=== PATIENT | female | born 1950 | race Caucasian/White ===

== ENCOUNTER 2017-03-12 06:24 | Day surgery (SDC) | payer MEDICARE, OTHER ==
[~2017-03-12] VITALS: Ht 162.6 cm; Wt 95.3 kg
[2017-03-12] VITALS (8 sets, daily range): BP systolic 105–141; BP diastolic 65–92
[~2017-03-12 06:24] MED LIST: ASPIR 8181 MG ORAL; ATENOLOL50 MG ORAL; BENTYL10 MG ORAL; CREON DR 24,001 EACH PO; DEXILANT60 MG ORAL; GABAPENTIN300 MG ORAL; LOSARTAN POTASS25 MG ORAL; MECLIZINE HCL25 MG ORAL; VENLAFAXINE HCL25 MG ORAL; cefOXitin Sod 1 GM in D5W 55 ML IVPB ONE
[2017-03-12] MEDS ORDERED: cefOXitin Sod 1 GM in D5W 55 ML IVPB ONE (07:00)
[2017-03-12] MEDS ORDERED: cefOXitin 2gm Inj ONE (07:11)
[2017-03-12] MEDS ORDERED: NS Irrig 1000ml IRRIG ONE (07:45)
--- NOTE | 2017-03-12 07:52 | Pre-Procedure Note/Attestation ---
Pre-Procedure Note/Attestation Complete Prior to Procedure Planned Procedure: not applicable Procedure Narrative: D&C, Hysteroscopy, possible polypectomy Indications for Procedure Pre-Operative Diagnosis: Endometrial enlargement, possible endometrial polyp Attestation I attest that I discussed the nature of the procedure; its benefits; risks and complications; and alternatives (and the risks and benefits of such alternatives ), prior to the procedure, with the patient (or the patient's legal vaccine customer representative). I attest that, if there was a reasonable possibility of needing a blood transfusion, the patient (or the patient's legal vaccine customer representative) was given the [facility] standardized written summary, pursuant to the [place] Blood Safety Act ([place] Health and Safety Code # 1645, as amended). I attest that I re-evaluated the patient just prior to the surgery and that there has been no change in the patient's H&P, except as documented below:NONE QING BOSE Mar 12, 2017 07:52
[2017-03-12] MEDS ORDERED: LR 1000ml ONE (08:00)
[2017-03-12] MEDS ORDERED: Midazolam 2mg/2ml Inj ONE (08:00)
[2017-03-12] MEDS ORDERED: Lidocaine 1% MPF 10mg/ml 5ml ONE (08:00)
[2017-03-12] MEDS ORDERED: Ketorolac 30mg Inj ONE (08:00)
[2017-03-12] MEDS ORDERED: Propofol 200mg/20ml IV ONE (08:00)
[2017-03-12] MEDS ORDERED: fentaNYL 100 mcg/2 mL IV ONE (08:00)
[2017-03-12] MEDS ORDERED: LR 1000ml 1,000 ML IVLG SCH (08:15)
[2017-03-12] MEDS ORDERED: DiphenhydrAMINE 50mg/ml Inj IVP PRN (08:15)
[2017-03-12] MEDS ORDERED: Hydromorphone 0.5mg/0.5ml inj IVP PRN (08:15)
--- NOTE | 2017-03-12 08:35 | Brief Operative Note ---
Immediate Post Operative Note Operative Note Pre-op Diagnosis: Endometrial enlargement, possible endometrial polyp Procedure: D&C, Hysteroscopy Post-op Diagnosis: Endometrial Enlargement on U/S, Endometrial Atrophy Findings: consistent w/pre-op dx studies, other Surgeon: Qing Bose MD Compound Coating Machine Offbearer: NONE Anesthesiologist: Lito Chou MD Anesthesia: general Specimen: yes - ECC, EMC Complications: none Condition: stable Fluids: LR @100 cc / hr Estimated Blood Loss: minimal Drains: none Implant(s) used?: No QING BOSE Mar 12, 2017 08:35
--- NOTE | 2017-03-12 08:43 | Immediate Post-Op Evaluation ---
Immediate Post-Op Evalulation Immediate Post-Op Evalulation Procedure: D&C Hysteroscopy Date of Evaluation: Mar 12, 2017 Time of Evaluation: 08:42 IV Fluids: 800 Blood Products: none Estimated Blood Loss: min Urinary Output: 300 Blood Pressure Systolic: 110 Blood Pressure Diastolic: 58 Pulse Rate: 58 Respiratory Rate: 20 O2 Sat by Pulse Oximetry: 99 Temperature (Fahrenheit): 97.6 Pain Score (1-10): 2 Nausea: No Vomiting: No Complications none Patient Status: reacts, patent, none Hydration Status: adequate NIMCO REA M.D. Mar 12, 2017 08:43
[2017-03-12] MEDS ORDERED: D5 1/2NS 1,000 ML IV SCH (08:45)
[2017-03-12] MEDS ORDERED: HYDROmorphone 1mg/ml Carpuject SUBQ PRN (08:45)
[2017-03-12] MEDS ORDERED: Tylenol #3 tab (300mg/30mg) ORAL PRN (08:45)
[2017-03-12] MEDS ORDERED: Norco 5mg/325mg tab ORAL PRN (08:45)
--- NOTE | 2017-03-12 08:47 | Anethesia Preoperative Eval ---
Anesthesia Pre-op PMH/ROS General Date of Evaluation: Mar 12, 2017 Time of Evaluation: 07:11 Anesthesiologist: Effie ASA Score: ASA 3 Mallampati Score Class I : Soft palate, uvula, fauces, pillars visible Class II: Soft palate, uvula, fauces visible Class III: Soft palate, base of uvula visible Class IV: Only hard plate visible Mallampati Classification: Class II Surgeon: Abbey Diagnosis: Endometrial hyperplasia Surgical Procedure: D&C Hysteroscopy Anesthesia History: none Family History: no anesthesia problems Allergies: Uncoded Allergies: EGGPLANT (Allergy, Intermediate, 03/11/17) COUGHING nuts (Allergy, Intermediate, 03/11/17) itching,hives Medications: see eMAR Past Medical History Cardiovascular: Reports: HTN, Denies: CAD, [place], valve dz, arrhythmia, other Pulmonary: Reports: RAJINDER, Denies: asthma, COPD, other Gastrointestinal/Genitourinary: Reports: GERD, other - kidney stones Neurologic/Psychiatric: Denies: dementia, CVA, depression/anxiety, TIA, other HEENT: Denies: cataract (L), cataract (R), glaucoma, GRINDSTONE (L), GRINDSTONE (R), other Hematology/Immune: Denies: anemia, DVT, bleeding disorder, other Musculoskeletal/Integumentary: Denies: OA, RA, DJD, DDD, edema, other Other: obesity PMH Narrative: as above PSxH Narrative: see H&P Anesthesia Pre-op Phys. Exam Physician Exam Last Vital Signs Date Time Temp Pulse Resp B/P (MAP) Pulse Ox O2 Delivery O2 Flow Rate FiO2 03/12/17 07:16 98.4 68 20 141/92 100 Room Air Constitutional: NAD Neurologic: CN 2-12 intact Cardiovascular: RRR, no M/R/G Gastrointestinal: other - obesity Airway Exam Mallampati Score: Class II MO: full Neck: stiff ROM: limited Teeth: intact Dentures: no upper, no lower Anesthesia Pre-op A/P Labs see chart Studies Pre-op Studies: EKG - NSR, CXR - WNL Risk Assessment & Plan Assessment: ASA 3 Plan: GA with LMA Status Change Before Surgery: No Pre-Antibiotics Drug: Cefoxitin 2gr. Given Within 1 Hr of Incision: Yes Time Given: 07:48 NIMCO REA M.D. Mar 12, 2017 08:47
--- NOTE | 2017-03-12 08:49 | 48 Hour Post Anesthesia Eval ---
Post Anesthesia Evaluation Procedure: D&C Hysteroscopy Date of Evaluation: Mar 12, 2017 Time of Evaluation: 08:47 Blood Pressure Systolic: 116 0: 48 Pulse Rate: 77 Respiratory Rate: 20 Temperature (Fahrenheit): 97.4 O2 Sat by Pulse Oximetry: 99 Airway: patent Nausea: No Vomiting: No Pain Intensity: 2 Hydration Status: adequate Cardiopulmonary Status: stable Mental Status/LOC: patient returned to baseline Follow-up Care/Observations: n/a Post-Anesthesia Complications: none Follow-up care needed: ready to discharge NIMCO REA M.D. Mar 12, 2017 08:49
--- NOTE | 2017-03-12 19:45 | Operative Note - Dictated ---
DATE OF OPERATION: 03/12/2017 PREOPERATIVE DIAGNOSIS: Thickened endometrium on ultrasound. POSTOPERATIVE DIAGNOSIS: Thickened endometrium on ultrasound plus endometrial atrophy. SURGEON: Geronimo Potter M.D. REGISTRATION REP: None. ANESTHESIA: General. ANESTHESIOLOGIST: Victor Hugo Chou M.D. PROCEDURE IN DETAIL: After all the appropriate consents were signed, the patient was brought to the operating room, placed on table in supine position and general anesthesia was induced without complication. The patient was then placed in a dorsal lithotomy position. Perineum, vagina and abdomen prepped and draped in the usual fashion for the procedure. The patient was then examined under anesthesia. Uterus appeared to be approximately normal size with no adnexal masses with mobile adnexa and uterus. The patient's cervix was identified and dilated. Video hysteroscope was introduced and multiple areas of atrophy and adhesions due to atrophy were visualized. These filmy adhesions were taken apart and tubal ostia were visualized. Once reevaluated, there did not appear to be any submucosal fibroids or endometrial polyps. The patient's endometrium was once again reexamined and no additional lesions were identified. At this time, endocervical curettage was performed followed by endometrial curettage. The procedure then continued with removing all of the instruments from the vagina and the cervix was completely hemostatic. The patient was then placed back in the supine position and awakened from general anesthesia. She tolerated the procedure very well. Geronimo Potter M.D. DR: KAITLYN JOB#: [id number] CC: MAY
== END 2017-03-12 10:30 | disposition home or self-care (01) ==
LOC: SUR 06:24
DX: N85.8 Other specified noninflammatory disorders of uterus (principal); R93.8 Abnormal findings on diagnostic imaging of other specified body structures; Z88.0 Allergy status to penicillin; Z90.49 Acquired absence of other specified parts of digestive tract; Z79.82 Long term (current) use of aspirin; I10 Essential (primary) hypertension; E66.9 Obesity, unspecified; Z68.36 Body mass index [BMI] 36.0-36.9, adult; G47.33 Obstructive sleep apnea (adult) (pediatric); K21.9 Gastro-esophageal reflux disease without esophagitis; Z91.018 Allergy to other foods
CPT/HCPCS: 58558; J0694; J1885; J2250; J2704; J3010; J7120; 94003; 94150